=== PATIENT | male | born 1945 | race Caucasian/White ===

== ENCOUNTER 2016-12-18 17:58 | Inpatient (IN) | payer OTHER, MEDICARE ==
[~2016-12-18] VITALS: Ht 177.8 cm; Wt 75.0 kg
[~2016-12-18 17:58] MED LIST: ALLERGY PILL; ANTIDEPRESSANT; BLOOD PRESSURE PILL; COUM4TAB7 PO; POTA-243 PO
--- NOTE | 2016-12-18 18:21 | PD ---
HPI Chief Complaint: Injury Time Seen by Provider: 18:13 Travel History International Travel<30 days: No Contact w/Intl Traveler<30days: No Traveled to known affect area: No History of Present Illness HPI 71yo M with PMH of alcohol abuse and colostomy bag (because [facility]) presents to the ED with right arm pain and deformity. As per EVAC, pt was found on the floor with his right arm behind him. Pt admits to drinking and probably falling from drinking too much. He does not remember how long he was down for or exactly what happened to his arm. Denies any fever, chest pain, sob, n/v, abdominal pain, focal weakness or numbness. PFSH Past Medical History Blood Disorders: No Depression: Yes Cancer: No Cardiovascular Problems: No Diminished Hearing: No Endocrine: No Gastrointestinal Disorders: Yes (CHOLOSTOMY BAG) Genitourinary: Yes (PER PT "PUNCTURED BLADDER") Hypertension: Yes Musculoskeletal: No Neurologic: No Psychiatric: Yes Respiratory: Yes Immunizations Current: No Past Surgical History Abdominal Surgery: Yes (COLOSTOMY) Cardiac Surgery: No Cholecystectomy: Yes (CHOLOSTOMY BAG) Ear Surgery: No Endocrine Surgery: No Eye Surgery: No Genitourinary Surgery: No Gynecologic Surgery: No Oral Surgery: No Thoracic Surgery: No Other Surgery: Yes Social History Alcohol Use: Yes (2-3 TIMES PER WEEK) Tobacco Use: Yes (1 PPD) Substance Use: Yes (OCCASIONAL MARIJUANA) Allergies-Medications (Allergen,Severity, Reaction): Coded Allergies: codeine (Unverified Allergy, Intermediate, 11/26/16) Reported Meds & Prescriptions Reported Meds & Active Scripts Active Reported Potassium Chloride ER (Potassium Chloride) 10 Meq Tab Unknown Dose PO BID [Allergy Pill] [Blood Pressure Pill] Review of Systems Except as stated in HPI: all other systems reviewed are Neg Physical Exam Narrative GENERAL: 71yo M in mild distress. SKIN: Focused skin assessment warm/dry. HEAD: Atraumatic. Normocephalic. EYES: Pupils equal and round at 4mm bilaterally. No scleral icterus. No injection or drainage. ENT: No nasal bleeding or discharge. Mucous membranes pink and moist. NECK: Cervical spine collar placed. CARDIOVASCULAR: Regular rate and rhythm. No murmur appreciated. RESPIRATORY: No accessory muscle use. Clear to auscultation. Breath sounds equal bilaterally. GASTROINTESTINAL: Abdomen soft, non-tender, nondistended. No rebound tenderness or guarding. BACK: No midline ttp. MUSCULOSKELETAL: +Obvious deformity in right mid humerus. No open wounds. Distal pulses intact. Deltoid sensation intact. NEUROLOGICAL: Awake and alert. No obvious cranial nerve deficits. Motor grossly within normal limits. Normal speech. Data Data Last Documented VS Vital Signs Date Time Temp Pulse Resp B/P (MAP) Pulse Ox O2 Delivery O2 Flow Rate FiO2 12/18/16 20:15 100 Nasal Cannula 2.00 12/18/16 18:45 97.8 70 19 115/66 (82) Orders Orders Ct Brain W/O Iv Contrast(Rout) (12/18/16 ) Ct Cerv Spine W/O Contrast (12/18/16 ) Apply Cervical Collar (12/18/16 18:13) Complete Blood Count With Diff (12/18/16 18:13) Basic Metabolic Panel (Bmp) (12/18/16 18:13) Creatine Kinase (Cpk) (12/18/16 18:13) Prothrombin Time / Inr (Pt) (12/18/16 18:13) Act Partial Throm Time (Ptt) (12/18/16 18:13) Type And Screen (12/18/16 18:13) Shoulder, Limited(2vws) (12/18/16 ) Humerus (Min 2vws) (12/18/16 ) Alcohol (Ethanol) (12/18/16 18:20) Chest, Single Ap (12/18/16 ) Consult Orthopedic (12/18/16 ) Protein Corrected Calcium(Pcc) (12/18/16 18:20) Propofol 200 Mg/20 Ml Inj (Diprivan 200 (12/18/16 19:45) (Hub Use Only)Inp Phy Cons/Ref (12/18/16 ) Humerus (Min 2vws) (12/18/16 ) Morphine Inj (Morphine Inj) (12/18/16 20:45) Admit Order (Ed Use Only) (12/18/16 21:03) Labs Laboratory Tests Test 12/18/16 18:20 White Blood Count 6.4 TH/MM3 Red Blood Count 4.33 MIL/MM3 Hemoglobin 16.0 GM/DL Hematocrit 46.1 % Mean Corpuscular Volume 106.5 FL Mean Corpuscular Hemoglobin 37.0 PG Mean Corpuscular Hemoglobin Concent 34.7 % Red Cell Distribution Width 15.6 % Platelet Count 193 TH/MM3 Mean Platelet Volume 6.5 FL CBC Comment AUTO DIFF Differential Total Cells Counted 100 Neutrophils % (Manual) 72 % Lymphocytes % 15 % Monocytes % 4 % Eosinophils % 5 % Basophils % 3 % Neutrophils # (Manual) 4.7 TH/MM3 Metamyelocytes 1 % Differential Comment FINAL DIFF MANUAL Prothrombin Time 10.1 SEC Prothromb Time International Ratio 0.9 RATIO Activated Partial Thromboplast Time 21.3 SEC Blood Urea Nitrogen 8 MG/DL Creatinine 1.21 MG/DL Random Glucose 109 MG/DL Total Protein 7.0 GM/DL Calcium Level 7.4 MG/DL Sodium Level 126 MEQ/L Potassium Level 3.6 MEQ/L Chloride Level 95 MEQ/L Carbon Dioxide Level 20.3 MEQ/L Anion Gap 11 MEQ/L Estimat Glomerular Filtration Rate 59 ML/MIN Protein Corrected Calcium 7.5 MG/DL Total Creatine Kinase 90 U/L Ethyl Alcohol Level 307 MG/DL [facility] Medical Decision Making Medical Screen Exam Complete: Yes Emergency Medical Condition: Yes Differential Diagnosis Fracture vs. dislocation vs. ICH Narrative Course 71yo M with right humerus deformity after being found on the floor. Pt was drinking and does not know what happen. Will draw preop labs including CPK. Xray showed comminuted right humerus fracture with angulation. Orthopedic surgeon paged. Sign out to next team to follow up ortho and CTs. Diagnosis Primary Impression: Closed right humeral fracture Qualified Codes: S42.351A - Displaced comminuted fracture of shaft of humerus , right arm, initial encounter for closed fracture Admitting Information Admitting Physician Requests: Admit Alesia Johnston DO Dec 18, 2016 18:21
[2016-12-18 18:45] VITALS: BP 115/66; PULSE 70; RESP 19; TEMP 97.8; O2SAT 98
[2016-12-18 18:48] LABS: HEMATOCRIT 46.1 % (39.0-51.0); MEAN CELL VOLUME 106.5 FL (80.0-100.0); MEAN CORPUSCULAR HGB CONC 34.7 % (32.0-36.0); PLATELET COUNT 193 TH/MM3 (150-450); RED BLOOD COUNT 4.33 MIL/MM3 (4.50-5.90); RED CELL DISTRIBUTION WIDTH 15.6 % (11.6-17.2); WHITE BLOOD COUNT 6.4 TH/MM3 (4.0-11.0)
[2016-12-18] MEDS ORDERED: POTA10TA2 PO (18:48)
[2016-12-18 18:50] LABS: HEMO FLAGS AUTO DIFF
--- NOTE | 2016-12-18 18:52 | RADRPT ---
EXAM DATE/TIME: 12/18/2016 18:24 [facility] COMPARISON: No previous studies available for comparison. INDICATIONS : Patient states they fell a few days ago. Right shoulder pain. MEDICAL HISTORY : None. SURGICAL HISTORY : None. ENCOUNTER: Initial ACUITY: 1 day PAIN SCORE: 8/10 LOCATION: Right Shoulder FINDINGS: There is a comminuted fracture of the proximal humeral shaft with angular deformity. No dislocation. Chronic erosive changes present distal clavicle. No other fractures are seen. CONCLUSION: 1. Comminuted fracture proximal and mid humeral shaft with angular deformity. Reno Frazier MD on December 18, 2016 at 18:50 Board Certified Radiologist. This report was verified electronically.
--- NOTE | 2016-12-18 18:54 | RADRPT ---
EXAM DATE/TIME: 12/18/2016 18:27 [facility] COMPARISON: No previous studies available for comparison. INDICATIONS : Patient states they fell the other day. Complains of right humerus pain. MEDICAL HISTORY : None. SURGICAL HISTORY : None. ENCOUNTER: Initial ACUITY: 1 day PAIN SCORE: 8/10 LOCATION: Right Humerus FINDINGS: There is a comminuted fracture of the proximal and mid humeral shaft with angular deformity. No dislo cation. No other fractures are seen. CONCLUSION: 1. Comminuted fracture right humerus with angular deformity. Reno Frazier MD on December 18, 2016 at 18:52 Board Certified Radiologist. This report was verified electronically.
[2016-12-18 18:59] LABS: APTT (PATIENT) 21.3 SEC (24.3-30.1); INTERNATIONAL NORMALIZED RATIO 0.9 RATIO; PROTHROMBIN TIME - PATIENT 10.1 SEC (9.8-11.6)
--- NOTE | 2016-12-18 19:35 | PD ---
Data Data Last Documented VS Vital Signs Date Time Temp Pulse Resp B/P (MAP) Pulse Ox O2 Delivery O2 Flow Rate FiO2 12/18/16 18:45 97.8 70 19 115/66 (82) 98 Room Air Orders Orders Ct Brain W/O Iv Contrast(Rout) (12/18/16 ) Ct Cerv Spine W/O Contrast (12/18/16 ) Apply Cervical Collar (12/18/16 18:13) Complete Blood Count With Diff (12/18/16 18:13) Basic Metabolic Panel (Bmp) (12/18/16 18:13) Creatine Kinase (Cpk) (12/18/16 18:13) Prothrombin Time / Inr (Pt) (12/18/16 18:13) Act Partial Throm Time (Ptt) (12/18/16 18:13) Type And Screen (12/18/16 18:13) Shoulder, Limited(2vws) (12/18/16 ) Humerus (Min 2vws) (12/18/16 ) Alcohol (Ethanol) (12/18/16 18:20) Chest, Single Ap (12/18/16 ) Consult Orthopedic (12/18/16 ) Protein Corrected Calcium(Pcc) (12/18/16 18:20) Propofol 200 Mg/20 Ml Inj (Diprivan 200 (12/18/16 19:45) (Hub Use Only)Inp Phy Cons/Ref (12/18/16 ) Humerus (Min 2vws) (12/18/16 ) Morphine Inj (Morphine Inj) (12/18/16 20:45) Admit Order (Ed Use Only) (12/18/16 21:03) Labs Laboratory Tests Test 12/18/16 18:20 White Blood Count 6.4 TH/MM3 Red Blood Count 4.33 MIL/MM3 Hemoglobin 16.0 GM/DL Hematocrit 46.1 % Mean Corpuscular Volume 106.5 FL Mean Corpuscular Hemoglobin 37.0 PG Mean Corpuscular Hemoglobin Concent 34.7 % Red Cell Distribution Width 15.6 % Platelet Count 193 TH/MM3 Mean Platelet Volume 6.5 FL CBC Comment AUTO DIFF Differential Total Cells Counted 100 Neutrophils % (Manual) 72 % Lymphocytes % 15 % Monocytes % 4 % Eosinophils % 5 % Basophils % 3 % Neutrophils # (Manual) 4.7 TH/MM3 Metamyelocytes 1 % Differential Comment FINAL DIFF MANUAL Prothrombin Time 10.1 SEC Prothromb Time International Ratio 0.9 RATIO Activated Partial Thromboplast Time 21.3 SEC Blood Urea Nitrogen 8 MG/DL Creatinine 1.21 MG/DL Random Glucose 109 MG/DL Total Protein 7.0 GM/DL Calcium Level 7.4 MG/DL Sodium Level 126 MEQ/L Potassium Level 3.6 MEQ/L Chloride Level 95 MEQ/L Carbon Dioxide Level 20.3 MEQ/L Anion Gap 11 MEQ/L Estimat Glomerular Filtration Rate 59 ML/MIN Protein Corrected Calcium 7.5 MG/DL Total Creatine Kinase 90 U/L Ethyl Alcohol Level 307 MG/DL MDM Supervised Visit with SHRADDHA: No Narrative Course The patient was initially evaluated by the previous provider and sent out to me at the beginning of my shift at approximately 7:[address] head, CT neck, ortho consultation for right humeral fracture, and disposition. See her note for further details. Briefly this is a 71-year-old male who drinks alcohol daily who fell in his living room. The details of this fall are unknown. Patient woke up with right arm pain. On exam he has an obvious deformity to his right arm with shortening of the humerus and a lateral mid arm hematoma. Right humeral x-ray shows a comminuted/angulated midshaft as well as comminuted proximal right humeral fracture. On exam this fracture is closed without any overlying skin breaks. Normal sensation throughout the entire right upper extremity. Bilateral distal radial pulses are brisk and equal. Case discussed with on-call orthopedist Dr. Terrazas who recommends that I attempt closed reduction and placed the patient in a coaptation splint. He will like the patient to be admitted to the medical service with a routine consult orthopedist Dr. Sexton. CT brain: No acute intracranial abnormality. Right-sided mastoid air cell disease. CT cervical spine: CONCLUSION: 1. No acute fracture. Moderate degenerative change. Has reviewed. Alcohol level is 307. Procedural sedation was performed by Dr. Patterson, and close reduction was performed by me. See procedure notes. Case discussed with hospitalist Dr. Webster who will admit the patient to her service. Procedures Procedure Narrative Close reduction of right humeral fracture: Procedural sedation performed by Dr. Patterson. Once the patient was adequately sedated, the right humeral fracture was reduced using gentle traction. Patient had a brisk right radial pulse prior to and after sedation. Postreduction films ordered. Tolerated well. No complications. Diagnosis Primary Impression: Closed right humeral fracture Qualified Codes: S42.351A - Displaced comminuted fracture of shaft of humerus , right arm, initial encounter for closed fracture Additional Impressions: Alcohol intoxication Qualified Codes: F10.920 - Alcohol use, unspecified with intoxication, uncomplicated Fall Qualified Codes: W19.XXXA - Unspecified fall, initial encounter Admitting Information Admitting Physician Requests: Admit Juan Pablo Garay MD Dec 18, 2016 19:35
[2016-12-18 19:38] LABS: BASOPHILS 3 % (0-2); EOSINOPHILS 5 % (0-4); METAMYELOCYTES 1 % (0-1); NEUTROPHIL # MANUAL DIFF 4.7 TH/MM3 (1.8-7.7); POLYS (SEG NEUTROPHILS) 72 % (16-70); SCAN/DIFF FINAL DIFF MANUAL; WBC DIFF SAMPLE 100
[2016-12-18 19:41] LABS: BICARBONATE 20.3 MEQ/L (21.0-32.0)
[2016-12-18] MEDS ORDERED: PROPOFOL 200 MG/20 ML AMP IV ONE (19:45)
--- NOTE | 2016-12-18 19:49 | RADRPT ---
EXAM DATE/TIME: 12/18/2016 19:29 [facility] COMPARISON: No previous studies available for comparison. INDICATIONS : Trauma, Fall. Unknown if he hit his head. RADIATION DOSE: 60.76 CTDIvol (mGy) MEDICAL HISTORY : Hypertension. SURGICAL HISTORY : None. ENCOUNTER: Initial ACUITY: 1 day PAIN SCALE: 0/10 LOCATION: cranial TECHNIQUE: Multiple contiguous axial images were obtained of the head. Using automated exposure control and adj ustment of the mA and/or kV according to patient size, radiation dose was kept as low as reasonably a chievable to obtain optimal diagnostic quality images. DICOM format image data is available electro nically for review and comparison. FINDINGS: No intracranial mass, hemorrhage or shift. No recent infarct identified. No hydrocephalus. No abnorma l extra-axial fluid collections. There is fluid in the right mastoid air cells and aerated portions o f the right temporal bone. No acute fracture identified. CONCLUSION: 1. No acute intracranial abnormalities. Right sided mastoid air cell disease. Reno Frazier MD on December 18, 2016 at 19:45 Board Certified Radiologist. This report was verified electronically.
[2016-12-18 20:01] LABS: CALCIUM-PROTEIN CORRECTED 7.5 MG/DL (8.5-10.1)
--- NOTE | 2016-12-18 20:06 | RADRPT ---
EXAM DATE/TIME: 12/18/2016 19:29 [facility] COMPARISON: No previous studies available for comparison. INDICATIONS : Trauma, Fall. RADIATION DOSE: 21.35 CTDIvol (mGy) MEDICAL HISTORY : Hypertension. SURGICAL HISTORY : None. ENCOUNTER: Initial ACUITY: 1 day PAIN SCALE: 0/10 LOCATION: neck TECHNIQUE: Volumetric scanning of the cervical spine was performed. Multiplanar reconstructions in the sagittal, coronal and oblique axial planes were performed. Using automated exposure control and adjustment o f the mA and/or kV according to patient size, radiation dose was kept as low as reasonably achievable to obtain optimal diagnostic quality images. DICOM format image data is available electronically f or review and comparison. FINDINGS: No acute fracture or spondylolisthesis. Moderate degenerative disc disease. No significant bony canal stenosis. Mild cervical levoscoliosis. Incidental note made of right sided mastoid air cell disease. There is also scattered parenchymal opacity in the upper lobes CONCLUSION: 1. No acute fracture. Moderate degenerative change. Reno Frazier MD on December 18, 2016 at 19:58 Board Certified Radiologist. This report was verified electronically.
[2016-12-18 20:08] LABS: POTASSIUM 3.6 MEQ/L (3.5-5.1)
[2016-12-18 20:15] VITALS: O2SAT 100
--- NOTE | 2016-12-18 20:25 | PD ---
Physical Exam Date Seen by Provider: Dec 18, 2016 Time Seen by Provider: 20:24 Narrative 71-year-old male fell and had 100% displaced midshaft humeral fracture. Dr. Garay asked for help with conscious sedation but he was reducing the fracture. Please refer to my procedure note regarding the sedation. Patient tolerated the procedure well. Data Data Last Documented VS Orders Orders Ct Brain W/O Iv Contrast(Rout) (12/18/16 ) Ct Cerv Spine W/O Contrast (12/18/16 ) Apply Cervical Collar (12/18/16 18:13) Complete Blood Count With Diff (12/18/16 18:13) Basic Metabolic Panel (Bmp) (12/18/16 18:13) Creatine Kinase (Cpk) (12/18/16 18:13) Prothrombin Time / Inr (Pt) (12/18/16 18:13) Act Partial Throm Time (Ptt) (12/18/16 18:13) Type And Screen (12/18/16 18:13) Shoulder, Limited(2vws) (12/18/16 ) Humerus (Min 2vws) (12/18/16 ) Alcohol (Ethanol) (12/18/16 18:20) Chest, Single Ap (12/18/16 ) Consult Orthopedic (12/18/16 ) Protein Corrected Calcium(Pcc) (12/18/16 18:20) Propofol 200 Mg/20 Ml Inj (Diprivan 200 (12/18/16 19:45) (Hub Use Only)Inp Phy Cons/Ref (12/18/16 ) Humerus (Min 2vws) (12/18/16 ) Morphine Inj (Morphine Inj) (12/18/16 20:45) Admit Order (Ed Use Only) (12/18/16 21:03) Labs Laboratory Tests Test 12/18/16 18:20 White Blood Count 6.4 TH/MM3 Red Blood Count 4.33 MIL/MM3 Hemoglobin 16.0 GM/DL Hematocrit 46.1 % Mean Corpuscular Volume 106.5 FL Mean Corpuscular Hemoglobin 37.0 PG Mean Corpuscular Hemoglobin Concent 34.7 % Red Cell Distribution Width 15.6 % Platelet Count 193 TH/MM3 Mean Platelet Volume 6.5 FL CBC Comment AUTO DIFF Differential Total Cells Counted 100 Neutrophils % (Manual) 72 % Lymphocytes % 15 % Monocytes % 4 % Eosinophils % 5 % Basophils % 3 % Neutrophils # (Manual) 4.7 TH/MM3 Metamyelocytes 1 % Differential Comment FINAL DIFF MANUAL Prothrombin Time 10.1 SEC Prothromb Time International Ratio 0.9 RATIO Activated Partial Thromboplast Time 21.3 SEC Blood Urea Nitrogen 8 MG/DL Creatinine 1.21 MG/DL Random Glucose 109 MG/DL Total Protein 7.0 GM/DL Calcium Level 7.4 MG/DL Sodium Level 126 MEQ/L Potassium Level 3.6 MEQ/L Chloride Level 95 MEQ/L Carbon Dioxide Level 20.3 MEQ/L Anion Gap 11 MEQ/L Estimat Glomerular Filtration Rate 59 ML/MIN Protein Corrected Calcium 7.5 MG/DL Total Creatine Kinase 90 U/L Ethyl Alcohol Level 307 MG/DL MDM Supervised Visit with SHRADDHA: No Procedures Procedure Narrative After the risks and benefits were discussed the following procedure was performed: MODERATE SEDATION: The patient was placed on a cardiac cath tech and pulse oximetry. An ambu bag and suction was immediately available at bedside. The patient was monitored by the nurse. Oxygen saturation , heart rate and blood pressure were monitored. Procedural sedation was acheived using IV propofol 80 mg. The patient was observed until awake and alert. Procedural Sedation time in attendance was 20 minutes. Scripts Hydrocodone-Acetaminophen (Hydrocodone-Acetaminophen) 7.5-325 mg Tab 1 TAB PO Q4H Y for PAIN, #60 TAB 0 Refills Prov: Nicolas Reed 12/19/16 Kimberley Patterson MD Dec 18, 2016 20:25
[2016-12-18] MEDS ORDERED: MORPHINE SULFATE 4 MG/ML INJ IV PUSH ONE (20:45)
--- NOTE | 2016-12-18 20:52 | RADRPT ---
EXAM DATE/TIME: 12/18/2016 20:01 [facility] COMPARISON: CHEST SINGLE AP, June 20, 2010, 15:51. INDICATIONS : Evaluate for pneumonia, pneumothorax, or communicable diseases. MEDICAL HISTORY : None. SURGICAL HISTORY : None. ENCOUNTER: Initial ACUITY: 1 day PAIN SCORE: 0/10 LOCATION: chest FINDINGS: A single view of the chest demonstrates the lungs to be symmetrically aerated without evidence of mas s, infiltrate or effusion. The cardiomediastinal contours are unremarkable. CONCLUSION: 1. No active disease. Right humeral fracture present. Reno Frazier MD on December 18, 2016 at 20:49 Board Certified Radiologist. This report was verified electronically.
--- NOTE | 2016-12-18 21:04 | RADRPT ---
EXAM DATE/TIME: 12/18/2016 20:36 [facility] COMPARISON: HUMERUS RIGHT (MIN 2VWS), December 18, 2016, 18:27. INDICATIONS : Right humerus post reduction. MEDICAL HISTORY : None. SURGICAL HISTORY : None. ENCOUNTER: Initial ACUITY: 1 day PAIN SCORE: 10/10 LOCATION: Right humerus. FINDINGS: There is a comminuted fracture of the proximal and mid humerus with improvement in angular deformity compared with prior study. Overlying cast. CONCLUSION: 1. Improvement in angular deformity of right comminuted humeral fracture. Reno Frazier MD on December 18, 2016 at 21:01 Board Certified Radiologist. This report was verified electronically.
[2016-12-18] MEDS ORDERED: SODIUM CHLORIDE 0.9% FLUSH 10 ML FLUSH IV FLUSH PRN (21:15)
[2016-12-18] MEDS ORDERED: MORPHINE SULFATE 4 MG/ML INJ IV PUSH PRN (21:15)
[2016-12-18] MEDS ORDERED: NALOXONE HCL 0.4 MG/ML AMP IV PRN (21:15)
[2016-12-18 21:51] VITALS: BP 121/64; PULSE 77; RESP 16; O2SAT 99
[2016-12-18] MEDS: SODIUM CHLOR 0.9% 1000 ML INJ 1,000 ML IV SCH (22:32)
[2016-12-18] MEDS ORDERED: POVIDONE IODINE 5% (ANTISEPSIS KIT) 4 APPLICATIONS EACH NARE PRN (22:45)
[2016-12-18] MEDS ORDERED: INSULIN HUMAN REGULAR 1,000 UNITS/10 ML VIAL SQ PRN (22:45)
[2016-12-18] MEDS ORDERED: SODIUM CHLORID 0.9% 500 ML IV PRN (22:45)
[2016-12-18] MEDS ORDERED: LACTATED RINGER'S 1000 ML IV PRN (22:45)
[2016-12-18] MEDS ORDERED: METOPROLOL TARTRATE 25 MG TAB PO PRN (22:45)
[2016-12-18] MEDS ORDERED: CHLORHEXIDINE GLUCONATE 2 % 1 PACK (2 CLOTHS) TOPICAL PRN (22:45)
[2016-12-18 23:30] VITALS: PULSE 65
[2016-12-19] VITALS: BP 156/78; PULSE 69; RESP 17; TEMP 96.3; O2SAT 98
[2016-12-19 04:00] VITALS: BP 144/76; PULSE 72; RESP 17; TEMP 96.5; O2SAT 97
--- NOTE | 2016-12-19 04:47 | HHI.HP ---
HPI Service [facility] ([place], [place])ists Primary Care Physician [facility] Admission Diagnosis closed right humeral fracture, fall, alcohol intoxication Diagnoses: Travel History International Travel<30 Days: No Contact w/Intl Traveler <30 Da: No Traveled to Known Affected Are: No History of Present Illness fell and hit coffee table did not hit head no premonitory symptoms no syncope was not able to get up because of shoulder pain came by ambulance no fever, no nausea, no vomiting, no diarrhea legally blind no burning or pain on urination Review of Systems Except as stated in HPI: all other systems reviewed are Neg Past Family Social History Past Medical History htn Past Surgical History colostomy their personal shoulder sx Allergies: Coded Allergies: codeine (Unverified Allergy, Intermediate, 11/26/16) Family History no brother no sister- obese 400lbs no other medical problems Social History trying to quit smoking for 30,in drink daily about 5 beers a day Physical Exam Vital Signs Vital Signs Date Time Temp Pulse Resp B/P (MAP) Pulse Ox O2 Delivery O2 Flow Rate FiO2 12/19/16 00:00 96.3 69 17 156/78 (104) 98 12/18/16 23:30 65 12/18/16 22:31 12/18/16 21:51 77 16 121/64 (83) 99 Room Air 12/18/16 20:15 100 Nasal Cannula 2.00 12/18/16 20:15 100 2.00 12/18/16 18:45 97.8 70 19 115/66 (82) 98 Room Air Physical Exam GENERAL: This is a well-nourished, well-developed patient, in no apparent distress. SKIN: No rashes, ecchymoses or lesions. Cool and dry. HEAD: Atraumatic. Normocephalic. No temporal or scalp tenderness. EYES: No scleral icterus. No injection or drainage. ENT: Nose without bleeding, purulent drainage or septal hematoma. Airway patent. NECK: Trachea midline. No JVD CARDIOVASCULAR: Regular rate and rhythm without murmurs, gallops, or rubs. RESPIRATORY: Clear to auscultation. Breath sounds equal bilaterally. No wheezes , rales, or rhonchi. GASTROINTESTINAL: Abdomen soft, non-tender, nondistended.No guarding. MUSCULOSKELETAL: Extremities without clubbing, cyanosis, or edema. No calf tenderness. NEUROLOGICAL: Awake and alert RUE in splint Normal speech. Laboratory Laboratory Tests Test 12/18/16 18:20 White Blood Count 6.4 Red Blood Count 4.33 Hemoglobin 16.0 Hematocrit 46.1 Mean Corpuscular Volume 106.5 Mean Corpuscular Hemoglobin 37.0 Mean Corpuscular Hemoglobin Concent 34.7 Red Cell Distribution Width 15.6 Platelet Count 193 Mean Platelet Volume 6.5 CBC Comment AUTO DIFF Differential Total Cells Counted 100 Neutrophils % (Manual) 72 Lymphocytes % 15 Monocytes % 4 Eosinophils % 5 Basophils % 3 Neutrophils # (Manual) 4.7 Metamyelocytes 1 Differential Comment FINAL DIFF MANUAL Prothrombin Time 10.1 Prothromb Time International Ratio 0.9 Activated Partial Thromboplast Time 21.3 Blood Urea Nitrogen 8 Creatinine 1.21 Random Glucose 109 Total Protein 7.0 Calcium Level 7.4 Sodium Level 126 Potassium Level 3.6 Chloride Level 95 Carbon Dioxide Level 20.3 Anion Gap 11 Estimat Glomerular Filtration Rate 59 Protein Corrected Calcium 7.5 Total Creatine Kinase 90 Ethyl Alcohol Level 307 Result Diagram: 12/18/16 1820 12/18/16 1820 Imaging Last 48 hours Impressions Shoulder X-Ray 12/18/16 0000 Signed Impressions: Service Date/Time: Sunday, December 18, 2016 18:24 - CONCLUSION: 1. Comminuted fracture proximal and mid humeral shaft with angular deformity. Reno Frazier MD Humerus X-Ray 12/18/16 0000 Signed Impressions: Service Date/Time: Sunday, December 18, 2016 20:36 - CONCLUSION: 1. Improvement in angular deformity of right comminuted humeral fracture. Reno Frazier MD Humerus X-Ray 12/18/16 0000 Signed Impressions: Service Date/Time: Sunday, December 18, 2016 18:27 - CONCLUSION: 1. Comminuted fracture right humerus with angular deformity. Reno Frazier MD Head CT 12/18/16 0000 Signed Impressions: Service Date/Time: Sunday, December 18, 2016 19:29 - CONCLUSION: 1. No acute intracranial abnormalities. Right sided mastoid air cell disease. Reno Frazier MD Chest X-Ray 12/18/16 0000 Signed Impressions: Service Date/Time: Sunday, December 18, 2016 20:01 - CONCLUSION: 1. No active disease. Right humeral fracture present. Reno Frazier MD Cervical Spine CT 12/18/16 0000 Signed Impressions: Service Date/Time: Sunday, December 18, 2016 19:29 - CONCLUSION: 1. No acute fracture. Moderate degenerative change. Reno Frazier MD Caprinthor VTE Risk Assessment Caprini VTE Risk Assessment: Mod/High Risk (score >= 2) Caprini Risk Assessment Model Point Value = 1 Point Value = 2 Point Value = 3 Point Value = 5 Age 41-60 Minor surgery BMI > 25 kg/m2 Swollen legs Varicose veins or History of unexplained or recurrent spontaneous Oral contraceptives or hormone replacement Sepsis (< 1 month) Serious lung disease, including pneumonia (< 1 month) Abnormal pulmonary function Acute myocardial infarction Congestive heart failure (< 1 month) History of inflammatory bowel disease Medical patient at bed rest Age 61-74 Arthroscopic surgery Major open surgery (> 45 min) Laparoscopic surgery (> 45 min) Malignancy Confined to bed (> 72 hours) Immobilizing plaster cast Central venous access Age >= 75 History of VTE Family history of VTE Factor V Leiden Prothrombin [id number] Lupus anticoagulant Anticardiolipin antibodies Elevated serum homocysteine Heparin-induced thrombocytopenia Other congenital or acquired thrombophilia Stroke (< 1 month) Elective arthroplasty Hip, pelvis, or leg fracture Acute spinal cord injury (< 1 month) Prophylaxis Regimen Total Risk Factor Score Risk Level Prophylaxis Regimen 0-1 Low Early ambulation 2 Moderate Order ONE of the following: *Sequential Compression Device (SCD) *Heparin 5000 units SQ BID 3-4 Higher Order ONE of the following medications: *Heparin 5000 units SQ TID *Enoxaparin/Lovenox 40 mg SQ daily (WT < 150 kg, CrCl > 30 mL/min) *Enoxaparin/Lovenox 30 mg SQ daily (WT < 150 kg, CrCl > 10-29 mL/min) *Enoxaparin/Lovenox 30 mg SQ BID (WT < 150 kg, CrCl > 30 mL/min) AND/OR *Sequential Compression Device (SCD) 5 or more Highest Order ONE of the following medications: *Heparin 5000 units SQ TID (Preferred with Epidurals) *Enoxaparin/Lovenox 40 mg SQ daily (WT < 150 kg, CrCl > 30 mL/min) *Enoxaparin/Lovenox 30 mg SQ daily (WT < 150 kg, CrCl > 10-29 mL/min) *Enoxaparin/Lovenox 30 mg SQ BID (WT < 150 kg, CrCl > 30 mL/min) AND *Sequential Compression Device (SCD) Assessment and Plan Assessment and Plan Impression: Status post fall Right proximal comminuted humeral fracture EtOH abuse Tobacco abuse Charlie COPD Hypertension Plan: Nothing by mouth. Orthopedics was consulted. Pain control. Watch for withdrawal. thiamine nebs prn dvt prophylaxis- scd now- chemical prophylaxis post op Discussed Condition With patient, ER Physician Certification 2 Midnight Certification Type: Admission for Inpatient Services Order for Inpatient Services The services are ordered in accordance with Medicare regulations or non- Medicare payer requirements, as applicable. In the case of services not specified as inpatient-only, they are appropriately provided as inpatient services in accordance with the 2-midnight benchmark. Estimated LOS (days): 2 days is the estimated time the patient will need to remain in the hospital, assuming treatment plan goals are met and no additional complications. Post-Hospital Plan: Home Karol Webster MD Dec 19, 2016 04:47
[2016-12-19 06:25] LABS: AUTOMATED NEUTROPHIL # 3.7 TH/MM3 (1.8-7.7); BASOPHIL # 0.1 TH/MM3 (0-0.2); BASOPHIL % 1.3 % (0.0-2.0); EOSINOPHIL # 0.2 TH/MM3 (0-0.4); EOSINOPHIL % 2.6 % (0.0-4.0); HEMATOCRIT 41.6 % (39.0-51.0); HEMO FLAGS DIFF FINAL; LYMPH % 26.5 % (9.0-44.0); LYMPHOCYTE # 1.6 TH/MM3 (1.0-4.8); MEAN CELL VOLUME 105.5 FL (80.0-100.0); MEAN CORPUSCULAR HEMOGLOBIN 36.6 PG (27.0-34.0); MEAN CORPUSCULAR HGB CONC 34.8 % (32.0-36.0); MONO % 9.4 % (0.0-8.0); NEUT % 60.2 % (16.0-70.0); PLATELET COUNT 207 TH/MM3 (150-450); RED BLOOD COUNT 3.95 MIL/MM3 (4.50-5.90); RED CELL DISTRIBUTION WIDTH 15.7 % (11.6-17.2); WHITE BLOOD COUNT 6.2 TH/MM3 (4.0-11.0)
[2016-12-19 06:45] LABS: BICARBONATE 21.5 MEQ/L (21.0-32.0); POTASSIUM 3.4 MEQ/L (3.5-5.1)
[2016-12-19] MEDS ORDERED: LORazepam 2 MG/ML VIAL IV PUSH PRN (06:45)
--- NOTE | 2016-12-19 06:50 | PD.ORT.PN ---
Subjective Subjective Remarks s/p fall while drunk right arm pain. no other complaints Objective Vitals Vital Signs Date Time Temp Pulse Resp B/P (MAP) Pulse Ox O2 Delivery O2 Flow Rate FiO2 12/19/16 04:00 96.5 72 17 144/76 (98) 97 12/19/16 00:00 96.3 69 17 156/78 (104) 98 12/18/16 23:30 65 12/18/16 22:31 12/18/16 21:51 77 16 121/64 (83) 99 Room Air 12/18/16 20:15 100 Nasal Cannula 2.00 12/18/16 20:15 100 2.00 12/18/16 18:45 97.8 70 19 115/66 (82) 98 Room Air Result Diagram: 12/19/16 0601 12/18/16 1820 Other Results Laboratory Tests Test 12/18/16 18:20 Prothromb Time International Ratio 0.9 RATIO Prothrombin Time 10.1 SEC (9.8-11.6) Objective Remarks RUE: +coap splint. nvi with good motion/sensation fingers. Assessment & Plan Assessment and Plan 1) Right Midshaft Humerus Fx -had discussion with patient regarding tx options. he would lik to proceed with nonop. I think this is reasonable -will add long arm splint to coap splint -NWB -if pain controlled, can go home later today -ortho cleared -f/u dayanara Sexton or JOAN in 2 weeks -consult dictated -rx on chart Nicolas Reed Dec 19, 2016 06:50
[2016-12-19] MEDS ORDERED: HYDR-3580 PO (06:52)
[2016-12-19 07:15] LABS: CALCIUM-PROTEIN CORRECTED 7.7 MG/DL (8.5-10.1)
[2016-12-19 08:00] VITALS: BP 157/77; PULSE 74; RESP 17; TEMP 96.9; O2SAT 95
[2016-12-19] MEDS ORDERED: THIAMINE INJ 100 MG in SODIUM CHLORIDE 0.9% INJ 100 ML IV ONE (08:00)
[2016-12-19] MEDS ORDERED: SODIUM CHLORIDE 0.9% FLUSH 10 ML FLUSH IV FLUSH SCH (09:00)
--- NOTE | 2016-12-19 09:01 | MB ---
cc: KADEEM RAMOS DATE OF ADMISSION 12/18/2016 DATE OF CONSULTATION 12/19/2016 REASON FOR CONSULTATION Comminuted right humerus fracture. CONSULTING PHYSICIAN Dr. Escalante. HISTORY Agus is a 71-year-old male who presented to the emergency room. He had a fall. The patient was intoxicated at the time of the fall. He has significant right arm pain. When he fell, he hit a coffee table. He did not hit his head. He denies dizziness, syncope or loss of consciousness. He does not clearly recall the fall because of alcohol intoxication. X-rays in the emergency department revealed a displaced and comminuted right humerus fracture. He is currently awake and alert on the orthopedic floor. The pain is worse with movement and is improved with rest. PAST MEDICAL HISTORY ILLNESSES Hypertension SURGERIES 1. Colostomy. 2. colostomy reversal. 3. Shoulder surgery. ALLERGIES CODEINE. MEDICATIONS Please see EMR for a complete list of inpatient medications. This was reviewed. FAMILY HISTORY Noncontributory. SOCIAL HISTORY The patient does drink alcohol almost every day. He has been trying to stop smoking and only smokes a few cigarettes a day. REVIEW OF SYSTEMS The patient denies headache, visual changes, neck pain, chest pain, shortness of breath, abdominal pain, nausea or vomiting, recent weight loss or numbness or tingling of extremities. He complains of right arm pain. The pain is worse with movement. PHYSICAL EXAMINATION GENERAL: The patient is a 71-year male who is awake and alert. He is alert and oriented x 3. He is in no acute distress. VITAL SIGNS: Temperature 96.5, pulse 72, respirations 17, blood pressure 144/76, O2 sat is 97% on 2 liters nasal cannula. HEAD: The patient is normocephalic. Pupils are equal. NECK: Soft, nontender. Trachea is midline. ABDOMEN: Soft, nontender, nondistended. EXTREMITIES: Examination of the right arm reveals diffuse tenderness around his shoulder and arm. He has no tenderness around his forearm, wrist or fingers. He has intact sensation in radial, ulnar and median nerve distributions. He has good cap refill of all his fingers. Skin is intact. He is in a well molded coaptation splint. Examination of left arm reveals no pain with shoulder, elbow or wrist motion. He has intact sensation in all fingers. He has good capillary refill in all fingers. Skin is intact. Radial pulses palpable. Examination of the bilateral lower extremities reveals no pain with hip, knee or ankle motion. Skin is intact. Dorsalis pedis pulses palpable. Sensation is intact to both feet. X-RAYS X-rays of the right humerus were reviewed. The x-rays reveal a mildly angulated, comminuted right mid-shaft humerus fracture. The fracture extends up to the humeral neck. IMPRESSION 1. Alcohol abuse. 2. Tobacco dependence. 3. Comminuted right humerus fracture. PLAN The treatment options were discussed with the patient. I had a lengthy discussion with him regarding surgical versus nonsurgical options. Surgery would include open reduction, internal fixation and nonoperative treatment would consist of a splint and possible functional brace at a later date. The risks and benefits of each plan were discussed in depth with the patient. The patient states that he would very much like to avoid surgery and would like to try nonoperative treatment. He will need to use a sling. He will need to be very careful with his right arm. He cannot use his right arm for any activities. I will have him follow up in the office in two weeks for repeat x-rays. The patient understands that, if the fracture displaces, he may need surgical intervention at a later date. All questions were answered. A mid-level provider in my office, nurse practitioner or PA, may see this patient on a follow-up basis and continue to implement the objective of this plan including: Starting or adjusting medications, injections of muscle, tendon, bursa or joints, cast application, orthotic or brace application, physical therapy, further radiographic studies including x-ray, MRI, CT, ultrasounds or bone scan, vascular studies, neurologic studies, or other specialist consultations, and proceeding with surgical management as appropriate. Kadeem MD LUCY Marroquin/MARIELA /8:15 AM /8:23 AM
[2016-12-19] MEDS: SODIUM CHLOR 0.9% 1000 ML INJ 1,000 ML IV SCH (10:30)
[2016-12-19 11:48] VITALS: BP 168/82; PULSE 79; RESP 18; TEMP 97.4; O2SAT 98
--- NOTE | 2016-12-19 12:43 | HHI.PR ---
Subjective Remarks Pain is controlled, no chest pain or shortness of breath, cleared by orthopedics. Objective Vitals Vital Signs Date Time Temp Pulse Resp B/P (MAP) Pulse Ox O2 Delivery O2 Flow Rate FiO2 12/19/16 11:48 97.4 79 18 168/82 (110) 98 12/19/16 08:00 96.9 74 17 157/77 (103) 95 12/19/16 04:00 96.5 72 17 144/76 (98) 97 12/19/16 00:00 96.3 69 17 156/78 (104) 98 12/18/16 23:30 65 12/18/16 22:31 12/18/16 21:51 77 16 121/64 (83) 99 Room Air 12/18/16 20:15 100 Nasal Cannula 2.00 12/18/16 20:15 100 2.00 12/18/16 18:45 97.8 70 19 115/66 (82) 98 Room Air Result Diagram: 12/19/16 0601 12/19/16 0601 Objective Remarks Not in distress, well-nourished, looks stated age Normal rate and regular rhythm, no murmurs gallops or rubs appreciated. Clear to auscultation and symmetric bilaterally, normal respiratory effort. Normal bowel sounds, soft, non-tender, nondistended, no guarding. Left upper extremity in a sling AAO x3, no cranial nerve deficits, moves all 4 extremities, no focal neurologic deficits A/P Problem List: (1) Fall ICD Code: W19.XXXA - Unspecified fall, initial encounter Status: Acute (2) Alcohol intoxication ICD Code: F10.929 - Alcohol use, unspecified with intoxication, unspecified Status: Acute (3) Closed right humeral fracture ICD Code: S42.301A - Unspecified fracture of shaft of humerus, right arm, initial encounter for closed fracture Status: Acute Assessment and Plan This is a 71-year-old male who sustained a humeral fracture after a fall Right proximal humeral fracture -send orthopedics, nonsurgical for now, patient also prefers nonsurgical management. Continue pain control, discharge today with home health care. Fall-mechanical, [place] acute physical therapy. All other chronic medical issues are stable, continue medications per home dose as indicated. Discharge patient to home Condition on discharge: Improved Regular Diet as tolerated Ad Catalina activity Rx written: [place] Follow-up with orthopedics in 2 weeks, nonweightbearing right upper extremity Problem Qualifiers (1) Fall: Qualified Codes: W19.XXXA - Unspecified fall, initial encounter (2) Alcohol intoxication: Qualified Codes: F10.920 - Alcohol use, unspecified with intoxication, uncomplicated (3) Closed right humeral fracture: Qualified Codes: S42.351A - Displaced comminuted fracture of shaft of humerus, right arm, initial encounter for closed fracture Soha Escalante MD Dec 19, 2016 12:43
[2016-12-19] MEDS ORDERED: POTASSIUM CHLORIDE 25 MEQ EFFERVESCENT TAB PO ONE (12:45)
--- NOTE | 2016-12-19 12:46 | EKG ---
Date Performed: 12/19/2016 Time Performed: 05:49:10 PTAGE: 71 years EKG: Sinus rhythm IV conduction defect Inferior infarct - age undetermined Lateral ST-T changes may be due to myocardi al ischemia Abnormal ECG PREVIOUS TRACING : 06/15/2010 19.11 DOCTOR: Edgardo Ibrahim Interpretating Date/Time 12/19/2016 12:43:10
--- NOTE | 2016-12-19 12:52 | HHI.FF ---
Face to Face Verification Diagnosis: (1) Alcohol intoxication (2) Fall (3) Closed right humeral fracture Physical Therapy Order: Evaluate and Treat I have seen patient Agus Jr Megan on 12/19/16. My clinical findings support the need for the requested home health care services because: Limited ability to care for self I certify that my clinical findings support that this patient is homebound because: Unsteady gait/balance Soha Escalante MD Dec 19, 2016 12:52
[2016-12-19 16:01] VITALS: BP 169/89; PULSE 97; RESP 18; TEMP 97.6; O2SAT 96
[2016-12-20] MEDS ORDERED: THIAMINE HCL 100 MG TAB PO SCH (09:00)
== END 2016-12-19 18:16 | disposition home health service (06) | DRG 563 ==
LOC: NEPE 17:58 → NEDA 21:04 → N06A 22:24
PROVIDERS: ADMIT Hospitalist; ATTEND Hospitalist
PROC: 0PSFXZZ Reposition Right Humeral Shaft, External Approach (ICD-10-PCS; principal; 2016-12-18)
DX: S42.351A Displaced comminuted fracture of shaft of humerus, right arm, initial encounter for closed fracture (principal); J44.9 Chronic obstructive pulmonary disease, unspecified; I10 Essential (primary) hypertension; F10.120 Alcohol abuse with intoxication, uncomplicated; Y90.8 Blood alcohol level of 240 mg/100 ml or more; W19.XXXA Unspecified fall, initial encounter; H54.8 Legal blindness, as defined in USA; F17.210 Nicotine dependence, cigarettes, uncomplicated; F32.9 Major depressive disorder, single episode, unspecified
CPT/HCPCS: 24535; 70450; 71010; 72125; 73030; 73060; 80048; 80307; 82550; 84155; 85007; 85025; 85027; 85610; 85730; 86850; 86900; 86901; 93005; 96374; 99156; J2270; J3411; J7030